=== PATIENT | female | born 1980 | race Caucasian/White ===

== ENCOUNTER 2022-05-17 14:56 | Emergency (ER) | payer OTHER ==
[2022-05-17] MEDS ORDERED: MORPHINE SULFATE 4 MG/ML SYRINGE IVP STA (15:00)
[2022-05-17 15:09] VITALS: TEMP 98.3
[2022-05-17] MEDS ORDERED: HYDROmorphone 1 MG/ML 1 ML SYRINGE IVP STA ×3 (15:24→18:23)
[2022-05-17] MEDS ORDERED: SODIUM CHLORIDE 0.9% 500 ML 500 ML IV STA (15:28)
[2022-05-17] MEDS ORDERED: DIPH,PERTUS(ACELL)TETVAC-LF 0.5 ML VIAL IM ONE (15:28)
[2022-05-17] MEDS ORDERED: LIDOCAINE 1% INJ 10MG/ML (30 ML VIAL-PF) SQ ONE (15:41)
[2022-05-17 16:01] VITALS: RESP 18
[2022-05-17] MEDS ORDERED: TRANEXAMIC ACID 2,000 MG in SODIUM CHLORIDE 0.9% 100 ML IRRIGATION ONE (16:56)
[2022-05-17] MEDS ORDERED: TRANEXAMIC ACID 1,000 MG/10 ML VIAL MISCELLANE STA (17:02)
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
[2022-05-17] MEDS ORDERED: ACET/COD 300 MG/30 MG STARTER PACK 6 TAB BTL PO STA (18:23)
[2022-05-17 19:09] VITALS: BP 118/89; PULSE 68
== END 2022-05-17 19:56 | disposition home or self-care (01) ==
LOC: EC 14:56
DX: S31.811A Laceration without foreign body of right buttock, initial encounter (principal); F17.200 Nicotine dependence, unspecified, uncomplicated; W26.8XXA Contact with other sharp object(s), not elsewhere classified, initial encounter
CPT/HCPCS: 90715; 99284; 96365; 96375; 96376; 90471; J2270; J0690; J2001; J1170

== ENCOUNTER → 2023-09-15 | Outpatient (CLI) | payer OTHER ==
--- NOTE | 2023-09-15 08:27 | USB ---
Reason for Exam: Clinical finding. Patient History: Menarche at age 14. First Full-Term at age 20. Risk Values: Aanly 5 year model risk: 0.5%. NCI Lifetime model risk: 8.1%. Technique: Method: Targeted. Findings: The area of palpable concern of both breasts, the axilla of both breasts and the retroareolar of both breasts were scanned. Targeted ultrasound bilateral breasts subareolar, periareolar, and inferior aspects correspond to the site of patient's pain. Some minimal bilateral duct ectasia is noted. In addition, there is a benign 3 mm subareolar cyst on the left. No suspicious solid lesion. No axillary lymphadenopathy. Overall Assessment: Benign, BI-RAD 2 Management: Screening Mammogram of both breasts in 1 year. Further clinical management of patient's bilateral breast pain. A clinical breast exam by your physician is recommended on an annual basis and results should be correlated with mammographic findings. This exam should not preclude additional follow-up of suspicious palpable abnormalities. Results were given to the patient verbally at the time of exam. Electronically signed and approved by: Jono French M.D. Radiologist
--- NOTE | 2023-09-15 09:21 | MM ---
Reason for Exam: Clinical finding. Patient History: Menarche at age 14. First Full-Term at age 20. Risk Values: Analy 5 year model risk: 0.5%. NCI Lifetime model risk: 8.1%. Tissue Density: There are scattered fibroglandular densities. Findings: Analyzed By CAD. Nodular asymmetric density subareolar left breast on the CC view does not persist on spot images. No significant mass, suspicious microcalcification, or other discrete abnormality is seen. Further ultrasound evaluation recommended for patients pain. Overall Assessment: Incomplete: need additional imaging evaluation, BI-RAD 0 Management: Diagnostic Breast Ultrasound of both breasts. Electronically signed and approved by: Jono French M.D. Radiologist
== END | disposition home or self-care (01) ==
LOC: RADMAMWWP 07:18
PROVIDERS: ATTEND Family Medicine
DX: N60.02 Solitary cyst of left breast (principal); N60.41 Mammary duct ectasia of right breast; N60.42 Mammary duct ectasia of left breast; R92.323 Mammographic fibroglandular density, bilateral breasts
CPT/HCPCS: 77066; 76642; G0279; 77062